=== PATIENT | female | born 1940 | race Caucasian/White ===

== ENCOUNTER 2022-09-10 10:14 | Outpatient (CLI) | payer MEDICARE | END 2022-09-10 10:15 | disposition home or self-care (01) | LOC: CSHMAMMO 10:14 | PROVIDERS: ATTEND Internal Medicine | DX: M85.88 Other specified disorders of bone density and structure, other site (principal); M81.0 Age-related osteoporosis without current pathological fracture | CPT/HCPCS: 77080 ==